=== PATIENT | male | born 1940 | race Caucasian/White ===

== ENCOUNTER 2020-06-23 16:54 | Inpatient (IN) | payer OTHER ==
[2020-06-23 20:40] VITALS: BP 148/88
[2020-06-24] MEDS ORDERED: FINASTERIDE5 MG PO (01:11)
[2020-06-24] MEDS ORDERED: LATANOPROST 0.2.5 ML OPHTHALMIC (01:11)
--- NOTE | 2020-06-24 04:00 | NUR ---
Pt admitted from ED @2029. Alert to self only,impulsive when in the day room and kept trying to get up from etta chair several times;order obtained from for lap christina,fastened in the front until 2300 when pt was assisted to bed. Pt has been max assist per ,and been using a WC for mobility d/t increased weakness and unable to bear weight on legs. Pt's incontinent of B&B although she reports he can verbalize need to void. Pt only answering to yes/no,soft spoken. Has 5 skin tears on right arm per from falls at [facility],some of them with foul odor. Pictures taken and cordiantor consulted. Pt has been calm with no agitation noted. Up at this time in day room. Fall precautions in place,will continue to monitor pt.
[2020-06-24 06:44] LABS: CHOLESTEROL 136 mg/dL (<200); HDL CHOLESTEROL 42 mg/dL (>40); LDL CHOLESTEROL 75 mg/dL (<100); TC:HDL 3.2 Ratio (Not establshd); TRIGLYCERIDE 97 mg/dL (<150); VLDL 19 mg/dL (<40)
--- NOTE | 2020-06-24 09:28 | NUR ---
WOUND CONSULT; THE PATIENT IS ON THE [facility] UNIT. THE WOUNDS ARE ALL ON THE RIGHT ARM. [place] ETIOLOGY, LIKELY PICKING. THE WOUNDS ARE SKIN TEAR LIKE. NO S/S OF INFECTION. NO PAIN RESPONSE FROM THE PATIENT. RECOMMENDATIONS; -AG FOAM DRESSINGS, CHANGE M/W/F PRN RN PRESENT.
[2020-06-24 09:42] VITALS: BP 114/72
--- NOTE | 2020-06-24 13:43 | NUR ---
PATIENT WAS UP IN GERICHAIR SITTING IN DAYROOM WHEN CARE ASSUMED. PATIENT IS A/O TO SELF ONLY, FORGETFUL, AND COFUSED. PATIENT TOOK MORNING MEDICATION IN PUDDING WITHOUT DIFFICULTY. PATIENT CONSUMED 100% BREAKFAST, ABLE TO FEED SLEF WITH CUE FROM STAFF. PATIENT IS IMPULSIVE, ATTEMPTING TO GRAB AT STAFF WHILE 1300HR MEDICATION WAS BEING ADMINISTERED. PATIENT DENIES SUICIDAL IDEATION, HE IS NOT ABLE TO APPROPRIATELY RESPOND TO FURTHER ASSESSMENT QUESTIONS DUE TO COGNITIVE IMPAIRMENT. DRESSING TO RIGHT UPPER ARM CHANGED BY WOUND CARE NURSE. ALL FALL PRECAUTIONS IN PLACE. AFFECT IS FLAT/BLUNTED, MOOD IS EUTHYMIC, NO SIGN OF ACUTE DISTRESS NOTED AT THIS TIME, WILL CONTINUE TO REDIRECT, AND MONITOR FOR SAFETY.
[2020-06-24 15:15] LABS: CALCIUM 8.9 mg/dL (8.5-10.1); CREATININE 1.2 mg/dL (0.7-1.3); POTASSIUM 4.1 mmol/L (3.5-5.1)
[2020-06-24 15:21] LABS: ABSOLUTE NEUTROPHILS 3.5 thou/uL (1.4-8.2); ALBUMIN 2.9 g/dL (3.4-5.0); BASOPHILS 0.7 % (0.0-2.0); HEMATOCRIT 30.5 % (42.0-52.0); HEMOGLOBIN 10.1 gm/dL (14.0-18.0); MCH 32.8 pg (26.0-34.0); MCHC 33.1 g/dL (28.0-37.0); MCV 99.1 fL (80.0-100.0); MONOCYTES 8.5 % (1.0-8.0); PLATELET COUNT 217 thou/uL (150-400); POLYS 55.8 % (36.0-66.0); RBC 3.08 mil/uL (4.50-6.00); RDW 13.7 % (10.5-14.5); TOTAL BILIRUBIN 0.4 mg/dL (0.2-1.0); TOTAL PROTEIN 6.2 g/dL (6.4-8.2); WBC 6.2 thou/uL (4.0-11.0)
[2020-06-24 19:14] VITALS: BP 136/86
[2020-06-25 00:06] LABS: GLYCOHEMOGLOBIN (HGB A1C) 7.6 % (4.8-5.6)
--- NOTE | 2020-06-25 05:10 | NUR ---
06-24-20 CARE TRANSFERRED 1914 OBSERVED PT SITTING IN RECLINER IN DAY ROOM. LATER PT AAOX1, VSS, RR EVEN AND NONLABORED ON RA. PT IS SOFT SPOKEN AND SEEMS TO HAVE TROUBLE ARTICULATING THOUGHTS INTO WORDS. PT DENIES SI/HI AND PAIN, OBSERVED NO S/S OF PAIN AND NO SI/HI BEHAVIORS. PT HAS BI-LAT DRESSING C/D/I. LATER PT WAS TAKEN TO BATHROOM AND ATTEMPT TO COLLECT UA, PT BEGAIN TO BECOME AGITATED. LATER PT BED WAS ADJUSTED FOR COMFORT. LATER DIRECTOR SUMMER SESSIONS REPORTED THAT PT WANTED TO COME BACK TO DAY ROOM. ZERO S/S OF ACUTE DISTRESS NOTED, PT WILL CONTINUE TO BE MONITOR PER [facility] PROTOCOL.
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
[2020-06-25 10:17] VITALS: BP 105/81
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
[2020-06-25 13:40] LABS: URINE BILIRUBIN NEGATIVE (Negative); URINE BLOOD NEGATIVE (Negative); URINE CLARITY CLEAR; URINE COLOR YELLOW; URINE GLUCOSE-RANDOM* NEGATIVE (Negative); URINE KETONES NEGATIVE (Negative); URINE LEUKOCYTES-REFLEX NEGATIVE (Negative); URINE NITRITE-REFLEX NEGATIVE (Negative); URINE PROTEIN (DIPSTICK) NEGATIVE (Negative)
--- NOTE | 2020-06-25 13:58 | NUR ---
Assumed pt care at 0700. pt was alert and oriented to self. pt was sleeping but arousable at AM. Assessments completed, vss. No sign of si/hi noted on pt. No c/o pain. Took AM meds crushed in pudding, no difficulty noted. Staff assisted pt with AM meals. Pt ate about 15 to 20%. Ambulates with a Autumn chair. pt is a Max assist. pt called to check up on pt. PT was combative with the staff assisting with lunch. pt refused his lunch and noon meds. pt was combatitive with medical writer. pt was stripping his cloths off. staff tried redirecting pt, he became increasely aggressive, kicking and hitting. Dr roca was notified. Olanzapine 5mg IM was ordered and administered to pt at 1304. UA was collected via straight cath. UA sent to the lab. At this time pt is sleeping in his room. pt is a fall risk, fall precaution in place. bed alarm on. will continue to monitor pt.
[2020-06-25 19:40] VITALS: BP 104/78
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
[2020-06-26 09:57] VITALS: BP 123/76
--- NOTE | 2020-06-26 15:09 | NUR ---
ELOY faxed updates to [facility]. ELOY team will continue to follow pt during his stay on this unit.
--- NOTE | 2020-06-26 16:11 | NUR ---
Alert and orientated to name only. Sitting quietly in gerichair without s/o distress. Nonverbal most of morning but in afternoon stated he had to use the bathroom. No speech or behavior suggestive of SI/HI. Breath sounds clear. Reg, diminished HR auscultated. Color pale pink with brisk capillary refill and palpable peripheral pulses +1/+2. Incontinent of large amt yellow urine per brief. Active bowel sounds over soft, rounded abdomen. Minimal PO intake but did eat entire pudding for snack with meds. Currently resting in bed without s/o distress.
[2020-06-26 20:05] VITALS: BP 114/90
--- NOTE | 2020-06-27 05:10 | NUR ---
06-26-20 CARE TRANSFERRED 0 OBSERVED PT SITTING IN RECLINER IN DAY ROOM. LATER PT AAX1, VSS, RR EVEN AND NONLABORED ON RA. PT REPORTS PAIN AND DENIES SI/HI, PAIN HAS BEEN MANAGED WITH SCHEDULED MEDICATION. PT IS SOFT SPOKEN BUT WAS MORE INTERACTIVE WITH COMMUNICATION, PT HAS REMAINED CALM AND COOPERATIVE. ZERO S/S OF ACUTE DISTRESS NOTED, PT WILL CONTINUE TO BE MONITOR PER [facility] PROTOCOL.
[2020-06-27 09:05] VITALS: BP 127/68
--- NOTE | 2020-06-27 10:42 | NUR ---
Alert and orientated to name. More verbal today. Denies SI/HI stating, "Why would I want to do that". Occassionally speaking in whisper, other times clear voice. Eating independently. Denies pain. Breath sounds clear. Reg HR auscultated. Color pink with brisk capillary refill and palpable peripheral pulses. Brief dry. Active bowel sounds over soft, rounded abdomen. Able to stand independently several times during assessment, following directions. Dressing per R arm dry and intact. Currently sitting in day room eating snack without s/o distress.
[2020-06-27 20:31] VITALS: BP 112/73
[2020-06-27 22:02] VITALS: BP 112/73
--- NOTE | 2020-06-27 23:21 | NUR ---
Assumed care on 06/27/20 @ 19:15, A&Ox1 to name only (Festus) HRRR, S1S2 noted, Lungs CTA, ABD sounds normoactive x4Q, denies BM today, reports BM yesterday. Pleasant affect noted, cooperative with assessment and compliant with meds. Dressings to R arm C/D/I. High fall risk, wiath fall precautions in place. Seated in a etta chair with a chair alarm under him. noted to be compliant with medication administration, taking meds crushed in pudding with water. VSS, transferred to bed @ . Bed in low position, bed alarm set, will continue to monitor for safety and comofort as per unit protocol.
[2020-06-27 23:50] VITALS: BP 95/63
[2020-06-28 00:50] VITALS: BP 97/57
--- NOTE | 2020-06-28 02:23 | NUR ---
Bed alarm sounded @ 2350 on 06/27/20, immediately heard a sound, multiple staff responded to the bed alarm and went into the patient's room. Noted to be on the far side of the bed on the floor. Noted to have a skin tear to his left elbow. Patient moves all extremities within normal limits for his baseline. Pupils round reactive to light and equal. VS 95/63 84 97% 17 97.2. Assisted to etta chair and taken to the day room. Reports left elbow is slightly sore denies any other pain. Dr Law called @ 0020, he gave an order for the hospitalist to see the patient. Rosy Galindo contacted @ 0030, she came and saw the patient and gave an order to take orthostatic Blood pressure reading x1, @ 01:50 Lie 123/80 80, sit 112/72 85, Stand x2 assist to stand and blood pressure cuff would not register his blood pressure, attempted twice. At one hour from the fall 06/28/20 0050 97/57 81 18 93% 97.2. Patient's called at 01:30, message let on answering machine. She called back and was advised of the patient's fall. The fall was unwitnessed. Patient was drowsy and in bed just before the fall. He sustained a skin tear to the left elbow. Dr. Law was advised, Laura the patient's was advised. Rosy Galindo NP the Hospitalist was advised. Will continue to round as per unit protocol for safety and comfort.
--- NOTE | 2020-06-28 07:40 | NUR ---
ASSUMED CARE AT 0700 THIS MORNING. PT. O2 SAT WAS BETWEEN 75-80. DR. MARTINEZ CALLED, NO NEW ORDERS RECEIVED. STATED HE WOULD CALL DR. CORNELL TO DISCUSS THE MATTER AND RETURN CALL TO THIS BIRD SITTER, LATER.
[2020-06-28 10:19] LABS: HEMATOCRIT 31.7 % (42.0-52.0); HEMOGLOBIN 10.8 gm/dL (14.0-18.0); MCH 33.1 pg (26.0-34.0); MCHC 33.9 g/dL (28.0-37.0); MCV 97.7 fL (80.0-100.0); RBC 3.25 mil/uL (4.50-6.00); RDW 13.1 % (10.5-14.5); WBC 8.9 thou/uL (4.0-11.0)
[2020-06-28 10:36] VITALS: BP 141/89
[2020-06-28 10:38] LABS: ALBUMIN 3.1 g/dL (3.4-5.0); CALCIUM 8.9 mg/dL (8.5-10.1); CREATININE 1.6 mg/dL (0.7-1.3); MAGNESIUM 1.6 mg/dL (1.8-2.4); POTASSIUM 4.6 mmol/L (3.5-5.1); TOTAL BILIRUBIN 0.5 mg/dL (0.2-1.0); TOTAL PROTEIN 7.1 g/dL (6.4-8.2)
--- NOTE | 2020-06-28 12:26 | NUR ---
ASSUMED CARE AT 0700 THIS MORNING. PT. UP, DRESSED AND IN THE DINING ROOM FOR BREAKFAST. HE WAS PLEASANT AND COOPERATIVE WITH THIS RN. HE TOOK HIS MORNING MEDICATIONS WITHOUT PROBLEMS. HE SAT IN THE DINING ROOM DURING MORNING GROUP. HE ATE WELL. HE INTERACTS UPON APROACH OF STAFF ONLY. HE WAS NOT NOTED TO BE INTERACTING WITH OTHER PATIENTS WHILE ON THE UNIT.
[2020-06-28 12:30] VITALS: BP 141/89
--- NOTE | 2020-06-28 12:43 | NUR ---
ASSUMED CARE AT 0700 THIS MORNING. PT. HAS BEEN IN THE DINING ROOM IN A RECLINING CHAIR THIS MORNING. HE DOES NOT RESPOND TO QUESTIONS WHEN THIS RN ASKS BUT DOES FOLLOW DIRECTIONS WHEN GIVEN. HE WAS SEEN BY DR. CORNELL AND DR. MARTINEZ TODAY. HE TOOK HIS MORNING MEDICATIONS CRUSHED AND APPLESAUCE WITHOUT PROBLEMS NOTED. HE IS VERY MESSY WHEN HE IS EATING. PART OF HIS FOOD ENDS UP IN THE CHAIR BESIDE HIM, BUT HE INSISTS ON FEEDING HIMSELF. HE HAS NOT STRUCK OUT A STAFF THIS MORNING. WHEN ASKED ABOUT PAIN, HE DENIED IT. HOWEVER, HE DOES RECEIVE PAIN MEDICATIONS SCHEDULED. HE TOOK THE BANDAGES OFF HIS ARMS AFTER THEY WERE PLACED ON HIM. WILL CONTINUE TO MONITOR.
[2020-06-28 19:43] VITALS: BP 131/77
[2020-06-28 20:20] VITALS: BP 131/77; BP 137/77
--- NOTE | 2020-06-29 02:50 | NUR ---
ASSUMED PATIENT CARE AT APPROX 1900, PATIENT SITTING IN DAY ROOM IN CELIA CHAIR, NO S/S OF DISTRESS OR DISCOMFORT. NON VERBAL. PATIENT REFUSED MEDS, GIVEN OLANZAPINE FOR REFUSAL OF QUETIAPINE PER MEDICATION ORDERS. WILL CONTINUE TO MONITOR.
--- NOTE | 2020-06-29 09:13 | NUR ---
WOUND CARE NOTE; SKIN TEARS R ARM, L ELBOW HEALED, STAFF STATES PT KEPT TAKING DRESSINGS OFF, NO S/S INFECTION, MARATHON SKIN PREP APPLIED TO L ELBOW FOR PROTECTION, PT SLEEPING IN CHAIR, COOPERATIVE, WILL SIGN OFF WOUND CARE, TO RECONSULT IF NEEDED RECOMMENDATIONS; NO WOUND CARE AT PRESENT, RECONSULT IF NEEDED ELECTRIC SCOOP OPERATOR AWARE
[2020-06-29 09:25] VITALS: BP 130/75
[2020-06-29 12:46] VITALS: BP 130/75
--- NOTE | 2020-06-29 12:50 | NUR ---
ASSUMED CARE AT 0700 TODAY. PT. HAS BEEN IN A RECLINING CHAIR, ASLEEP MOST OF THE MORNING. HE WAKES OCCASIONALLY. HE TAKES HIS MEDICATIONS CRUSHED AND IN APPLESAUCE OR PUDDING. HE WILL EAT, WHEN AWAKE. SINCE HE'S BEEN SO SLEEPY THIS MORNING, HE HAS NOT BEEN STRIKING AT ANYONE. WILL CONTINUE TO MONITOR.
[2020-06-29 19:56] VITALS: BP 133/74
[2020-06-29 22:43] VITALS: BP 133/74
[2020-06-29 22:53] VITALS: BP 133/74
--- NOTE | 2020-06-30 00:04 | NUR ---
Assumed care from day shift nurse at 1900, pt is Alert to self, pleasant and cooperative, denies SI/HI, visual or auditory hallucination. Review of pt notes and noted fall on day shift, pt does have a cut noted above his left eye vs his right eye, the cut is closed, skin around the area is pink, no drainage noted, open to air. cleanse earlier and did not require cleaning this shift. lungs sounds are clear, abd soft non tender, pt noted to display signs of impulsivity by trying to get out of the chair and needed redirection from staff. Pt offered toileting and water but he declined. Pt tolerated his medication crushed with pudding. will continue to monitor.
--- NOTE | 2020-06-30 08:23 | NUR ---
ELOY received a vm from Artie with [facility]. ELOY returned his call and was told he was unavailble. ELOY left a msg with the hotel or motel receptionist. SW team will continue to follow pt during his stay on this unit.
[2020-06-30 09:56] VITALS: BP 124/97
--- NOTE | 2020-06-30 12:06 | NUR ---
RT Progress Note- Farhan has shown little engagement in milieu or recreation therapy groups since admission. Farhan rarely communicates verbally with staff or peers, sometimes providing gestures. Farhan has been present for passive participation in music groups. MUD PLANT OPERATOR will continue to encourage engagement. He has not displayed aggression or agitation during interaction.
--- NOTE | 2020-06-30 15:41 | NUR ---
REFUSES PO MEDICATIONS INITIALLY THIS AM PURSING LIPS TIGHTLY WHEN APPROACHED-AM MEDS CRUSHED AND PUT IN APPLESAUCE AND ATTEMPTED TO GIVE IN THIS MANNER-AGAIN REFUSES-STATING "NO" AND GRABBING ONTO NURSES WRIST AND SQUEEZING TIGHTLY. AM MEDICATIONS PLACED WITH OATMEAL AT BREAKFAST AND DID CONSUME 100 PERCENT OF BREAKFAST AND SUPPLEMENTS WHEN FED BY SALES SUPPORT ADVISOR. ATTEMPTED TO GET UP ON OWN DESPITE VERY INSTEADY GAIT-INABILITY TO STAND WITHOUT ASSISTANCE AND RECENT FALL 06/29PM-TAKEN TO BR Q 2-3 HOURS AND HAS BEEN INCONTINENT OF URINE X 2 SO FAR THIS SHIFT. NO SKIN BREAKDOWN NOTED DURING INCONTINENT CARE-DOES REQUIRE 2-3 STAFF TO ASSIST ONTO BSC OR TOILET BECOMES AGITATED AND RESISITVE WITH TOILETING-PUSHING STAFF AWAY,GRABBING ONTO PANTS AND DEPENDS AND REFUSING TO LET GO-PUSHING BACK AGAINST STAFF WHEN ATTEMPTING TO STAND UP FOR TRANSFER. MINIMAL SPEECH NOTED WILL OCCASSIONALLY STATE "NO" "GET AWAY" REST OF CONVERSATION MUMBLING,FRAGMENTED AND INCOHERENT. NOTED TO BECOME INCREASINGLY RESTLESS AT 1500- ATTEMPTING TO STAND UP OUT OF CHAIR-TOILETED BUT REMAINS AGITATED -REFUSES OFFERS OF FOOD/FLUIDS-REPOSITIONED FOR COMFORT AND ATTEMPTED TO AMBULATE HOWEVER IS RESISITIVE AND COMBATIVE WHEN STAFF TOUCH HIM IN ATTEMPT TO STAND SO AMBULATION UNABLE TO BE COMPLETED IN A SAFE MANNER. YELLING LOUDLY ACROSS ROOM AT UNSEEN OTHER "I CAN'T HEAR YO0" NO RESPONSE WHEN ASKED WHO HE WAS TALKING TO., DID ALLOW BS AT [id number] WHEN APPROACHED WITH INSULIN 3 UNITS AT 1130 FOR BS 163-PULLED AWAY AND STATES "NO" LOUDLY- NOTIFIED RE USE OF MECHANICAL HOLD FOR ADMINISTRATION OF INSULIN 6 TIMES PER DAY. REMAINS ON HIGH FALLS RISK WITH CHAIR ALARM YELLOW T-SHIRT,SOCKS,ARM BAND IN PLACE
[2020-06-30 19:21] LABS: URINE BILIRUBIN NEGATIVE (Negative); URINE BLOOD 3+ (Negative); URINE CLARITY CLEAR; URINE COLOR YELLOW; URINE GLUCOSE-RANDOM* NEGATIVE (Negative); URINE KETONES NEGATIVE (Negative); URINE NITRITE-REFLEX NEGATIVE (Negative); URINE PROTEIN (DIPSTICK) 3+ (Negative); URINE SPECIFIC GRAVITY >= 1.030 (1.005-1.035)
[2020-06-30 19:23] LABS: URINE LEUKOCYTES-REFLEX 1+ (Negative)
[2020-06-30 19:30] LABS: SQUAMOUS 0-3 Few /LPF (0-3); WBC CLUMPS Few (None Seen)
[2020-06-30 19:31] LABS: URINE RBC >20 Many /HPF (NONE SEEN); URINE WBC-REFLEX >25 Many /HPF (0-5)
[2020-06-30 19:32] LABS: BACTERIA-REFLEX >30 Many /HPF (None Seen)
[2020-06-30 19:36] LABS: AMORPHOUS URATES Few /LPF (None Seen); CASTS None Seen /LPF (None Seen)
[2020-06-30 19:46] VITALS: BP 120/65
--- NOTE | 2020-07-01 01:32 | NUR ---
PT CARE WAS RESUMED AT 1900. ALERT AND CONFUSED. PT WAS SITTING IN THE DAY AREA AND STAFF WAS MONITORING FOR SAFETY. LUNGS ARE CLEAR ABD IS SOFT AND NONE TENDER.PT IS DIABETIC AND SCHEDULE INSULIN GIVEN PER ACCUCHECK REPORT. PT IS CALM AND STAFF OFFERED SCHEDULED MEDS IN PUDDING WITHOUT ANY ISSUES.JADE-CARE WAS PROVIDED AND BARRIER CREAME APPLIED. PT IS INCONTINET OF BOWEL AND BLADDER.
--- NOTE | 2020-07-01 05:58 | NUR ---
HOSPITAL SPECIALSIT WAS CONSULTED PER URINALYSIS REPORT AND PATIENT WAS STARTED ON CEPHALEXIN 500MG Q12 HOURS IS STARTED. NO ADVERSE REACTION NOTED AT THIS TIME. TEMP AT 97.6 . CONTINUE TO MONITOR.
[2020-07-01 09:13] VITALS: BP 144/83
[2020-07-01 10:24] VITALS: BP 144/83
--- NOTE | 2020-07-01 14:29 | NUR ---
PATIENT HAS BEEN UP, AND OUT IN DAYROOM SITTING IN [facility]. HE IS CALM, COOPERATIVE WITH CARE. HE IS ALERT, FORGETFUL, AND CONFUSED. PATIENT TOOK ALL MEDICATION WITHOUT DIFFICULTY, UNCRUSHABLE MEDS GIVEN IN OATMEAL. PATIENT IS EATING MEALS, AND DRINKING FLUID WELL, STAFF ASSISTED WITH FEEDING. PATIENT DENIES SUICIDAL IDEATION, NOT ABLE TO APPROPRIATELY RESPOND TO FURTHER ASSESSESSMENT QUESTIONS DUE TO COGNITIVE IMPAIRMENT. INCONTINENT CARE PROVIDED PER STAFF. NO AGGRESSION OR AGITATION NOTED. AFFECT IS FLAT/BLUNTED, MOOD IS EUTHYMIC. NO SIGN OF ACUTE DISTRESS NOTED AT THIS TIME, WILL CONTINUE TO REDIRECT, AND MONITOR FOR SAFETY.
[2020-07-01 19:31] VITALS: BP 126/87
[2020-07-01 21:00] VITALS: BP 126/87
--- NOTE | 2020-07-02 03:02 | NUR ---
PATIENT CARE WAS RESUMED AT 1900. PT WAS SEATING IN THE DAY AREA. LUNGS ARE CLEAR BS ACTIVE X 4 QUAD.PT IS ON ANTIBIOTIC FOR UTI WITHOUT ANY ADVERESE REACTION NOTED THIS SHIFTS. HE IS ON 2 HOURLY TOILETING. JADE CARE IS PROVIDED PER EACH EPISODE OF INCONTINENCE.CHAIR ALARM IS ON. HE DENIES PAINS,CONTINUE CARE AND MOITOR.
[2020-07-02 09:58] VITALS: BP 100/69
--- NOTE | 2020-07-02 12:00 | NUR ---
ELOY faxed updates for pt to [facility]. ELOY team will continue to follow pt during his stay on this unit.
--- NOTE | 2020-07-02 17:58 | NUR ---
Alert and orientated to name only. States pain 3/10 in feet, resolved with scheduled Tramadol. Denies SI/HI. Makes occassional coherent statements. Compliant with meds most of day but became combative with 1500 quetiapine raising fists and pushing away spoon. Dr. Law notified. 3.75 mg olanzapine given IM per R deltoid with minimal resistance. Took 1700 meds without difficulty. Breath sounds clear. Reg HR auscultated. Color pink with brisk capillary refill and palpable peripheral pulses. Brief saturated with yellow urine. Last documented BM 06/26, milk of magnesium given PO. Able to stand for brief periods without difficulty. Spent majority of day in gerichair with chair alarm in place.
[2020-07-02 20:55] VITALS: BP 166/85
--- NOTE | 2020-07-03 03:05 | NUR ---
ASSUMED CARE OF MR. MOREAU 07/02/20 @ 1900. HE WAS SITTING IN GERICHAIR WITH CHAIR ALARM IN THE DAY AREA. HE IS AWAKE, ALERT AND ORIENTED TO NAME ONLY. HE IS CALM AND COOPERATIVE. BREATHING IS NON-LABORED AND LUNGS CTA. SKIN IS WARM AND DRY, SKIN FRAGILE WITH MULTIPLE BRUISING ON FOREARMS, SCALP AND HAS A HEALING LACERATION ABOVE LEFT EYEBROW. ABDOMEN IS SOFT AND NON-TENDER, + BS X 4 QUADRANTS. ASSISTED GRAPPLE OPERATOR STAFF WITH CHANGING PATIENTS BRIEF, MODERATE AMOUNT OF YELLOW URINE, NO FOUL SMELL PRESENT. PATIENT IS ABLE TO SUPPORT HIS WEIGHT FOR SHORT PERIOD OF TIME TO ASSIST WITH CHANGE OF BRIEF/PANTS. PATIENT TOOK HIS 2100 MEDS, CRUSHED IN YOGURT WITHOUT DIFFICULTY. @0025 GRAPPLE OPERATOR WAS TOILETING PATIENT, HE WAS SITTING ON TOILET, AND THEN HAD BRIEF EPISODE OF DECDREASED MUSCLE TONE AND NOT RESPONDING VERBALLY. STAFF ASSIST X [address] PATIENT BACK IN TO WHEELCHAIR, AND MR. MOREAU BEGAN CLUTCHING AT STAFF. PLACED HIM IN BED. VS BP 164/111 P 117 R 18 PO 98%. WHILE STAFF CHECKING VITALS AND REDRESSING HIM, FREQUENTLY SWINGING AT THEM, PUNCHING AND KICKING. AFTER DRESSED PLACED IN GERICHAIR WITH CHAIR ALARM AND BROUGHT BACK IN TO THE DAYROOM. RESTING COMFORTABLTLY VS RECHECK BP 160/94 P 90 R 18 . STAFF WILL CONTINUE TO OBSERVE PER [facility] POLICY AND INTERVENE NEEDED.
[2020-07-03 09:34] VITALS: BP 104/64
--- NOTE | 2020-07-03 13:44 | NUR ---
Alert and orientated to name only. Attempting to hit and grabbing with cares in AM but then was calm and compliant with meds. Again attempting to hit and grab with noon oral meds. Took with alot of encouragement on third attempt. No speech/behavior suggestive of SI. Denies pain. Breath sounds clear. Reg HR auscultated. Color pink with brisk capillary refill and palpable peripheral pulses. Brief saturated with yellow urine this AM. Active bowel sounds over soft, rounded abdomen. No BM documented since 06/26/20, gave MOM yesterday without results. Currently sitting in etta chair w/o s/o distress.
[2020-07-03 21:30] VITALS: BP 104/64
--- NOTE | 2020-07-04 04:21 | NUR ---
ASSUMED CAREOF PATIENT 07/03/2020 @ 1900. HE HAS BEEN SITTING IN THE DAYROOM IN A GERICHAIR WITH HIS FEET ELEVATED, HEELS NOT TOUCHING RECLINER SURFACE. PATIENT ATE 1/2 OF HS SNACK WITH MEDICATIONS. ALERT TO PERSON ONLY. SKIN WARM AND DRY, HAS BRUISES IN VARIOUS STAGES OF HEALING, SCABS, AND HEALING LACERATION OVER LEFT EYEBROW. HEART SOUNDS REGULAR, LUNGS CLEAR, NO PEDAL EDEMA. HAD URINE SOAKED BRIEF EARLY IN SHIFT, PATIENT WAS TOILETED AND CLOTHING CHANGED. PATIENT FREQUENTLY THROUGHOUT SHIFT WAS MAKING REPETATIVE MOTIONS WITH HIS FINGERS AND HANDS IN THE AIR, PICKING AT HIS EAR AND BLANKET. HIS SPEECH WAS CLEAR. 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 STAFF ASSISTED PATIENT IN FREQENTLY CHANGED HIS POSITION IN THE CELIA-CHAIR, AND OFFERING FLUIDS AND SNACKS. PATIENT MADE HIS NEED TO URINATE KNOWN TO STAFF, WHEN TAKEN TO BATHROOM, HIS BRIEF WAS DRY. PATIENT INTERMITTENTLY NAPPED DURING SHIFT AND HAS DISPLAYED NOT DISRUPTIVE BEHAVIORS.
[2020-07-04 08:46] VITALS: BP 119/72
--- NOTE | 2020-07-04 15:57 | NUR ---
Assumed pt care at 0700. Pt was alert and oriented to self. ASSESSments completed, vss. pt was co-operative with AM MEDS. DEnies si/hi. Meds were administered as ordered. ambulates with a Autumn chair. pt combative with care at noon. combative with meds administration at 1500. No insulin administered at this time. PT Had a Bowel movement this shift. Pt is currrently sitting in the day room. will continue to monitor.
[2020-07-04 21:45] VITALS: BP 112/82
--- NOTE | 2020-07-05 02:42 | NUR ---
CARE WAS ASSUMED @1900 07/04/2020. MR. MOREAU WAS IN DAYROOM SITTING IN A GERICHAIR, ASSESSMENT ATTEMPTED, HE WAS COMBATIVE, MAKING FIST AND ATTEMPTING TO PUNCH AT AIR, GRABBING AT STAFF HANDS, AWAKE BUT NOT ALERT AND COMMUNICATING HE WAS 24 HOURS AGO. DID HS ACCUCHECK AT 2001, READING 63. BEGAN WORKING WITH MR. MOREAU AND ABLE TO GET HIM TO CONSUME 120ML ORANGE JUICE AND 1/2 PUDDING CONTAINER. HE BECAME MORE COOPERATIVE WITH STAFF AND SPEECH MORE CLEAR AND RESPONSES APPROPRIATE. CONTINUED TO ENCOURAGE FLUIDS. TOILETED PATIENT-BRIEF AND PANTS URINE SOAKED, PATIENT WAS CLEANED, JADE-CARE GIVEN, AND DRY BRIEF AND CLEAN CLOTHES PLACED. NOTED 2 ROUND CIRCULAR AREAS OF INITIAL SKIN BREAK DOWN ON POSTERIOR SHOULDER APPROX 3CM, HE CONTINUES TO HAVE AREAS OF VARIOUS STAGES OF HEALING BRUISES, SKIN TEARS, AND HAS PICKED THE SCAB OFF OF A WOUND ON TOP OF SCALP-NO ACTIVE BLEEDING. REPOSITIONED MR. MOREAU IN THE GERICHAIR, GAVE HS MEDS-CRUSHED IN PUDDING, HE DRANK A BOTTLE OF ENSURE, THEN FELL ASLEEP. HE HAS BEEN MONITORED BY STAFF Q 12 MIN PER [facility] POLICY.
[2020-07-05 05:31] LABS: HEMOGLOBIN 11.2 gm/dL (14.0-18.0); MCH 33.3 pg (26.0-34.0); MCHC 33.9 g/dL (28.0-37.0); MCV 98.3 fL (80.0-100.0); RBC 3.36 mil/uL (4.50-6.00); RDW 13.4 % (10.5-14.5); WBC 7.9 thou/uL (4.0-11.0)
[2020-07-05 05:43] LABS: CALCIUM 9.6 mg/dL (8.5-10.1); CREATININE 1.3 mg/dL (0.7-1.3); MAGNESIUM 2.1 mg/dL (1.8-2.4); POTASSIUM 4.6 mmol/L (3.5-5.1)
[2020-07-05 08:58] VITALS: BP 144/66
[2020-07-05 09:45] VITALS: BP 144/66
--- NOTE | 2020-07-05 10:49 | NUR ---
ASSUMED CARE AT 0700 THIS MORNING. PT. SITTING IN DINING ROOM IN A RECLINING CHAIR, ASLEEP. HE WAS WOKE UP FOR BREAKFAST, BUT CONTINUED TO FALL ASLEEP. HE TOOK HIS MORNING MEDICATIONS CRUSHED AND IN PUDDING WITHOUT PROBLEMS. HE WAS FED THE ENTIRE CUP OF PUDDING. HE HAS BEEN SOMULENT THIS MORNING. WILL CONTINUE TO MONITOR.
--- NOTE | 2020-07-05 12:58 | NUR ---
Faxed updates to [facility]
[2020-07-05 19:28] VITALS: BP 136/87
[2020-07-05 20:30] VITALS: BP 136/87
--- NOTE | 2020-07-05 23:15 | NUR ---
ASSUMED CARE OF PATIENT AT 1900, PATIENT ALERT AND SITTING UPRIGHT IN DAY ROOM IN RECLINER, NO S/S OF DISCOMFORT OR DISTRESS. TOOK MEDS CRUSHED IN PUDDING WITHOUT DIFFICULTY, WAS FED ENTIRE ICE CREAM CUP. MADE GOOD EYE CONTACT WHEN SPEAKING WITH HIM, EYES WERE EXPRESSIVE, BUT HE WAS MINIMALLY VERBAL. HE DID STATE "YOU CAN SAY NO PAIN" WHEN ASKED ABOUT PAIN. ENJOYED HOLDING THIS WRITERS HAND FOR COMFORT FOR SEVERAL MINUTES. WILL CONTINUE TO MONITOR.
[2020-07-06 08:56] VITALS: BP 119/75
--- NOTE | 2020-07-06 12:50 | NUR ---
ALVAREZ spoke with ORALIA Blunt at [facility], concerning Pt's discharge. Alvarez informed that Pt would be discharged on 07/07/2020. Merlene asked for and update of Pt's behaviors. ALVAREZ informed that clinical notes were faxed to the facility on 07/03/2020 and 07/05/2020. ALVAREZ did provide verbal update to Merlene. Merlene agreed to the Pt returning. D/C set for 07/07/2020 @ 1300. Pt will be transported via [facility], confirmation #[id number]. A referral was faxed to [facility], , to restart services for the Pt.
--- NOTE | 2020-07-06 15:49 | NUR ---
Assumed pt care 0700. pt was oriented to self. combative this shift with care. ASSESSMENTS COMPLETED, VSS. tOOK MEDS CRUSHED in pudding. pt hit and scratch during multimedia coordinator. No sign of si/hi noted. ambulates with a etta chair. Refused breakfast, took supplement ensure for lunch. No ocurrence of BM at this time. No sign of acute distress noted upon assessments. At this time pt is in the day room. will continue to monitor pt.
[2020-07-06 19:39] VITALS: BP 129/89
[2020-07-06 21:00] VITALS: BP 129/89
--- NOTE | 2020-07-07 00:50 | NUR ---
TOOK OVER CARE OF MR. MOREAU @ 1900 ON 07/06/2020. HE WAS SITTING IN A GERICHAIR IN THE DAYROOM NEAR THE TELEVISION. HE IS AWAKE, MINIMAL RESPONSE TO NAME, SPEECH IS LESS CLEAR TODAY AND NOT ABLE TO HOLD A CONVERASTION. HAS HAD DECREASED PO INTAKE THIS SHIFT, WITH COAXING ONLY ABLE TO GET HIM TO CONSUME APPROX 120ML ENSURE AND FEW BITES OF ICE CREAM THAT HAD HIS HS MEDS IN. HE WAS CALM, COOPERATIVE AND DID NOT RESIST. HIS SKIN IN COOL, PALE, AND HAS MULTIPLE SKIN TEARS, BRUISES AND HEALING WOUNDS. LUNGS CTA, ABD SOFT + BS, +BM. STAFF WILL CONTINUE TO MONITOR MR. MOREAU PER [facility] PROTOCOL.
[2020-07-07 09:25] VITALS: BP 92/61
[2020-07-07 09:58] VITALS: BP 129/61
[2020-07-07] MEDS ORDERED: AMOXICILLIN 50500 M1 PO (12:36)
[2020-07-07] MEDS ORDERED: MIDODRINE HCL 55 M1 PO (12:36)
[2020-07-07] MEDS ORDERED: SEROQUEL 25 MG25 M1 PO (12:37)
[2020-07-07] MEDS ORDERED: CARBIDOPA-LEVO1 EAC9 PO (12:38)
[2020-07-07] MEDS ORDERED: SYNTHROID25 MC1 PO (12:40)
[2020-07-07] MEDS ORDERED: STIMULANT LAXA1 EACH PO (12:40)
--- NOTE | 2020-07-07 13:46 | NUR ---
Assumed pt care at 0700. pt was alert and oriented to self. Assessments completed, vss. pt was sedated, no meds administered. pt ambulates with a Autumn chair with staff assistance. Pt did not eat meals because he was sedated. No sign of acute distress noted upon assessments. No sign of si/hi noted. 1335 PT WAS D/C VIA W/C TO DRE at [place]. pt was accompany by grant writer and PRODUCT DEVELOPMENT COORDINATOR staff to front entrance. 1404 Report was called to Merlene at [facility].
--- NOTE | 2020-07-07 14:10 | NUR ---
ELOY D/C NOTE ELOY faxed pt's discharge docs to [facility]. ELOY will file docs in pt's file. No other needs for SW team to address at this time.
--- NOTE | 2020-07-08 14:07 | NUR ---
[facility] STAFF (OSIRIS) CALLED AND STATES PATIENT'S STATES "HE IS MISSING GLASSESS, AND VELCROW TENNIS SHOES". DON NOTIFIED, AND SHE STATES "TO NOTIFY THE NURSE SCHOOL AND LET HER HANDLE IT" THE INFORMATION PASSED ON TO THE NURSE SCHOOL (BRENDA), SAME PASSED ON TO THE NURSE SCHOOL. SHOE, AND GLASSES FOUND, AND [facility] STAFF (OSIRIS) NOTIFIED THAT PATIENT'S PROPERTY FOUND, AND IF THEY WOULD WANT TO COME GET THEM. OSIRIS STATES "WE DIDN'T LEAVE THEM THERE", AND REQUESTED FOR NURSE SCHOOL'S NUMBER. NURSE SCHOOL'S NUMBER GIVEN TO HER.
--- NOTE | 2020-07-08 23:05 | D ---
[facility] [place] [address] DISCHARGE SUMMARY Name: CAESAR MOREAU Room #: 527A-A [facility] IN M.R.#: [id number] Admission: 06/23/20 Attend Phys: Jayme Law DO Discharge: 07/07/20 Date of : 42 Report #: [id number] THIS REPORT FOR: cc: FAM - Family physician unknown FAM - Family physician unknown Jayme Law DO ~ DOC #: [id number] JAYME Law DO DATE OF SERVICE: 07/07/2020 PSYCHIATRIC DISCHARGE SUMMARY ATTENDING PSYCHIATRIST: Jayme Law DO. AGRICULTURE INTERN AT TIME OF DISCHARGE: Tj Huber MD. 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 ADDITIONAL DIAGNOSES: Diabetes mellitus type 2, chronic kidney disease stage 3, constipation, hypothyroidism, hypertension, failure to thrive. The patient is discharging to [facility], hospice has been ordered to restart. The patient is on comfort feeds at this point due to the high aspiration risk. DISCHARGE MEDICATIONS: Latanoprost 2.5 mL ophthalmic twice daily I believe for glaucoma; finasteride 5 mg oral daily for BPH; amoxicillin 500 mg oral twice daily due to UTI 7 more days; midodrine 5 mg oral 3 times a day; Seroquel I changed to 62.5 mg oral at 0900, 1500, and 2100 as needed for psychosis, agitation; carbidopa-levodopa 25/100 oral 3 times a day for Parkinson's disease, senna docusate 1 tab oral daily p.r.n. constipation; levothyroxine 25 mcg oral daily. LABORATORY DATA: The patient's most recent laboratory this admission on 07/05/2020; H and H 11.2, 33.2, white count 7.9, platelet count 290. Chemistries on 07/05/2020; sodium 141, potassium 4.2, chloride 105, bicarbonate 30, anion gap 6, BUN 42, creatinine 1.3, estimated GFR 53, estimated average glucose 171, hemoglobin A1c high at 7.6, calcium 9.6, magnesium 2.1, total bilirubin 0.5, AST 27, ALT 13, alkaline phosphatase 102, total protein 7.1, albumin 3.1. Triglycerides 97, cholesterol 136, LDL 75, HDL 42. B12 of 748, folate 15.0. TSH slightly elevated at 6.632. Urinalysis this admission on 06/30/2020 had several positives. Urine culture; Enterococcus faecalis, Enterococcus faecalis and Aerococcus Urinae. Initially the patient was treated with cephalexin that was changed to amoxicillin, he is completing the course of. COVID-19 serology on admission was negative. The patient is bedridden. Recommend q. 2 hour turning. If immobility continues, daily skin checks [address] [address] DISCHARGE SUMMARY Name: CAESAR MOREAU Room #: 527A-A DIS IN M.R.#: [id number] Admission: 06/23/20 Attend Phys: Jayme Law DO Discharge: 07/07/20 Date of : 42 Report #: [id number] REASON FOR ADMISSION: Back on the 06/23/2020 as follows: A 79-year-old male sent out from [facility] for hitting staff and other residents, impulsive visual hallucinations. HOSPITAL COURSE: The patient was admitted to Geriatric Psychiatry Unit. The patient was titrated on Seroquel up to 62.5 mg oral 3 times a day. Last several days before discharge, his intake declined significantly. At times, he would be resistive to cares, but overall myself and treatment team's view, this is an end of life situation. I had adjusted his carbidopa-levodopa to 25/100 from this admission and we did not have droxidopa medication on formulary for his Parkinson's disease, so midodrine was utilized. PHYSICAL EXAMINATION: GENERAL: On the day of discharge, the patient was calm appearing in acute distress. VITAL SIGNS: On date of discharge: Temperature 35.7, pulse 73, respirations 15, BP 129/61, O2 sat 96%. MUSCULOSKELETAL: Essentially bedridden, in a Autumn chair at times. Poorly-nourished appearing . MENTAL STATUS EXAMINATION: This is a well-developed, well-appearing male appearing at least stated age. Attention limited. Concentration very limited. Speech, occasional one word answers. Thought process linear. Very limited thought content, gross poverty of thought. Psychomotor retardation. In general, the patient was not self harmful, denied SI, did not appear to be responding to internal stimuli. Memory not formally tested, known to be impaired. Insight is impaired, judgment is impaired. Fund of knowledge well below average. Prognosis for this patient is poor to terminal. Hospice services have been restarted. DO REHANA RodriguezK/MINDY/NGUYỄNI <ELECTRONICALLY SIGNED> By: Jayme Law DO 07/08/20 [id number] Jayme Law, DO /nt
--- NOTE | 2020-07-09 10:20 | NUR ---
ELOY received a call from Corrina with [facility] stating that she can grab pt's stuff and then give it to an associate who works at that [facility] location who is currently in town. ELOY okayed this process. ELOY transferred to the nursing station and then provided an update to the [facility] director. No other needs for SW team to address at this time.
== END 2020-07-07 13:35 | DRG 57 ==
LOC: SBH
PROVIDERS: Internal Medicine; Nurse Practitioner; Psychiatry & Neurology Psychiatry; ADMIT Psychiatry & Neurology Psychiatry; ATTEND Psychiatry & Neurology Psychiatry
DX: G30.9 Alzheimer's disease, unspecified (principal); F01.51 Vascular dementia, unspecified severity, with behavioral disturbance; N18.30 Chronic kidney disease, stage 3 unspecified; E44.0 Moderate protein-calorie malnutrition; F02.81 Dementia in other diseases classified elsewhere, unspecified severity, with behavioral disturbance; G20 Parkinson's disease; E03.9 Hypothyroidism, unspecified; E78.5 Hyperlipidemia, unspecified; M1A.9XX0 Chronic gout, unspecified, without tophus (tophi); N40.0 Benign prostatic hyperplasia without lower urinary tract symptoms; I12.9 Hypertensive chronic kidney disease with stage 1 through stage 4 chronic kidney disease, or unspecified chronic kidney disease; E11.22 Type 2 diabetes mellitus with diabetic chronic kidney disease; Z66 Do not resuscitate; Z51.5 Encounter for palliative care; K59.00 Constipation, unspecified; Z88.8 Allergy status to other drugs, medicaments and biological substances
CPT/HCPCS: 10880

== ENCOUNTER 2020-06-23 19:35 | Emergency (ER) | payer OTHER ==
[~2020-06-23] VITALS: Ht 172.7 cm; Wt 68.0 kg
[2020-06-23 19:37] VITALS: BP 160/95
[2020-06-24] MEDS ORDERED: LATANOPROST 0.2.5 ML OPHTHALMIC (01:11)
[2020-06-24] MEDS ORDERED: FINASTERIDE5 MG PO (01:11)
== END 2020-06-23 20:20 ==
LOC: ER 19:35
DX: R45.6 Violent behavior (principal); Z20.822 Contact with and (suspected) exposure to COVID-19